=== PATIENT | male | born 1965 | race Caucasian/White ===

== ENCOUNTER 2017-07-19 07:27 | Inpatient (IN) | payer OTHER ==
[~2017-07-19] VITALS: Ht 185.4 cm; Wt 92.5 kg
[2017-07-19 07:30] VITALS: BP 182/94; PULSE 75; RESP 16; TEMP 98.4; O2SAT 99
[2017-07-19] MEDS ORDERED: VERA120T3 PO (07:48)
[2017-07-19] MEDS ORDERED: LIPI10TA PO (07:48)
[2017-07-19] MEDS ORDERED: VENL75TA PO (07:48)
[2017-07-19] MEDS ORDERED: DIAZ10 PO (07:48)
[2017-07-19] MEDS ORDERED: BENECAR (07:48)
[2017-07-19] MEDS ORDERED: GEOD60CA PO (07:48)
[2017-07-19] MEDS ORDERED: LORazepam 2 MG TAB PO ONE (08:15)
[2017-07-19 08:30] LABS: AUTOMATED NEUTROPHIL # 5.7 TH/MM3 (1.8-7.7); BASOPHIL # 0.1 TH/MM3 (0-0.2); BASOPHIL % 0.9 % (0.0-2.0); EOSINOPHIL # 0.1 TH/MM3 (0-0.4); EOSINOPHIL % 1.5 % (0.0-4.0); HEMATOCRIT 43.6 % (39.0-51.0); HEMOGLOBIN 14.9 GM/DL (13.0-17.0); LYMPH % 18.4 % (9.0-44.0); LYMPHOCYTE # 1.5 TH/MM3 (1.0-4.8); MEAN CELL VOLUME 87.2 FL (80.0-100.0); MEAN CORPUSCULAR HEMOGLOBIN 29.8 PG (27.0-34.0); MEAN CORPUSCULAR HGB CONC 34.2 % (32.0-36.0); MEAN PLATELET VOLUME 7.5 FL (7.0-11.0); MONO % 7.9 % (0.0-8.0); MONOCYTE # 0.6 TH/MM3 (0-0.9); NEUT % 71.3 % (16.0-70.0); PLATELET COUNT 344 TH/MM3 (150-450); RED CELL DISTRIBUTION WIDTH 13.8 % (11.6-17.2)
[2017-07-19 08:41] LABS: ALBUMIN 3.7 GM/DL (3.4-5.0); ALT (GPT) 23 U/L (12-78); AST (GOT) 16 U/L (15-37); BICARBONATE 26.2 MEQ/L (21.0-32.0); BLOOD UREA NITROGEN 11 MG/DL (7-18); CALCIUM 8.5 MG/DL (8.5-10.1); CHLORIDE 106 MEQ/L (98-107); CREATININE 0.76 MG/DL (0.60-1.30); GLOMERULAR FILTRATION RATE 109 ML/MIN (>89); GLUCOSE,RANDOM 111 MG/DL (74-106); SODIUM (NA) 140 MEQ/L (136-145)
[2017-07-19 08:51] LABS: ALKALINE PHOSPHATASE 87 U/L (45-117); TOTAL BILIRUBIN ADULT 0.4 MG/DL (0.2-1.0); TOTAL PROTEIN 7.5 GM/DL (6.4-8.2)
--- NOTE | 2017-07-19 09:58 | PD ---
HPI Chief Complaint: Psychiatric Symptoms Time Seen by Provider: 07:48 Travel History International Travel<30 days: No Contact w/Intl Traveler<30days: No Traveled to known affect area: No History of Present Illness HPI 51-year-old male presents emergency department voluntarily for psychiatric symptoms. Patient states family history of bipolar disorder and depression. Patient currently takes Geodon and diazepam prescribed by his primary care physician. Patient states increased anxiety and difficulty functioning at his job. Patient denies suicidal or homicidal ideation at this time, but is requesting psychiatric evaluation as he feels he is becoming more out of control. Patient denies use of drugs or alcohol. Patient denies any other medical issues currently per he is allergic to codeine and iodine. PFSH Past Medical History Bipolar Disorder: Yes Depression: Yes High Cholesterol: Yes Hypertension: Yes Tetanus Vaccination: > 5 Years Influenza Vaccination: Yes Past Surgical History Abdominal Surgery: Yes (hernia) Social History Alcohol Use: No Tobacco Use: Yes (1.5 ppd) Substance Use: Yes (marijuana ) Allergies-Medications (Allergen,Severity, Reaction): Coded Allergies: codeine (Verified Allergy, Severe, Anaphylaxis, 07/19/17) iodine (Verified Allergy, Severe, Anaphylaxis, 07/19/17) Reported Meds & Prescriptions Reported Meds & Active Scripts Active Reported Effexor (Venlafaxine HCl) 75 Mg Tab 75 Mg PO BID Lipitor (Atorvastatin Calcium) 10 Mg Tab 10 Mg PO HS Valium (Diazepam) 10 Mg Tab 10 Mg PO HS [benecar] Verapamil (Verapamil HCl) 120 Mg Tab 120 Mg PO BID Geodon (Ziprasidone) 60 Mg Cap 60 Mg PO BID Review of Systems Except as stated in HPI: all other systems reviewed are Neg General / Constitutional: No: Fever Eyes: No: Visual changes HENT: No: Headaches Cardiovascular: No: Chest Pain or Discomfort Respiratory: No: Shortness of Breath Gastrointestinal: No: Abdominal Pain Genitourinary: No: Dysuria Musculoskeletal: No: Pain Skin: No Rash Neurologic: No: Weakness Psychiatric: Positive: Anxiety, Depression, No: Suicidal Ideations, Substance Abuse, Homicidal Ideation Endocrine: No: Polydipsia Hematologic/Lymphatic: No: Easy Bruising Physical Exam Narrative GENERAL: Patient appears somewhat anxious with pressured speech noted SKIN: Warm and dry. Normal color. Normal turgor. HEAD: Atraumatic. Normocephalic. EYES: Pupils equal and round. No scleral icterus. No injection or drainage. ENT: No nasal bleeding or discharge. Mucous membranes pink and moist. Pharynx is clear. Airways patent NECK: Trachea midline. Supple and nontender CARDIOVASCULAR: Regular rate and rhythm. RESPIRATORY: No accessory muscle use. Clear to auscultation. Breath sounds equal bilaterally. GASTROINTESTINAL: Abdomen soft, non-tender, nondistended. Hepatic and splenic margins not palpable. MUSCULOSKELETAL: Extremities without clubbing, cyanosis, or edema. No obvious deformities. NEUROLOGICAL: Awake and alert. No obvious cranial nerve deficits. Motor grossly within normal limits. Five out of 5 muscle strength in the arms and legs. Normal speech. PSYCHIATRIC: Appropriate mood and affect; insight and judgment normal. Data Data Last Documented VS Vital Signs Date Time Temp Pulse Resp B/P (MAP) Pulse Ox O2 Delivery O2 Flow Rate FiO2 07/19/17 07:30 98.4 75 16 182/94 (123) 99 Orders Orders Complete Blood Count With Diff (07/19/17 08:07) Comprehensive Metabolic Panel (07/19/17 08:07) Thyroid Stimulating Hormone (07/19/17 08:07) Psych Screen (07/19/17 08:07) Drug Screen, Random Urine (07/19/17 08:07) Alcohol (Ethanol) (07/19/17 08:07) Lorazepam (Ativan) (07/19/17 08:15) Labs Laboratory Tests Test 07/19/17 08:13 White Blood Count 8.0 TH/MM3 Red Blood Count 5.00 MIL/MM3 Hemoglobin 14.9 GM/DL Hematocrit 43.6 % Mean Corpuscular Volume 87.2 FL Mean Corpuscular Hemoglobin 29.8 PG Mean Corpuscular Hemoglobin Concent 34.2 % Red Cell Distribution Width 13.8 % Platelet Count 344 TH/MM3 Mean Platelet Volume 7.5 FL Neutrophils (%) (Auto) 71.3 % Lymphocytes (%) (Auto) 18.4 % Monocytes (%) (Auto) 7.9 % Eosinophils (%) (Auto) 1.5 % Basophils (%) (Auto) 0.9 % Neutrophils # (Auto) 5.7 TH/MM3 Lymphocytes # (Auto) 1.5 TH/MM3 Monocytes # (Auto) 0.6 TH/MM3 Eosinophils # (Auto) 0.1 TH/MM3 Basophils # (Auto) 0.1 TH/MM3 CBC Comment DIFF FINAL Differential Comment Blood Urea Nitrogen 11 MG/DL Creatinine 0.76 MG/DL Random Glucose 111 MG/DL Total Protein 7.5 GM/DL Albumin 3.7 GM/DL Calcium Level 8.5 MG/DL Alkaline Phosphatase 87 U/L Aspartate Amino Transf (AST/SGOT) 16 U/L Alanine Aminotransferase (ALT/SGPT) 23 U/L Total Bilirubin 0.4 MG/DL Sodium Level 140 MEQ/L Potassium Level 4.3 MEQ/L Chloride Level 106 MEQ/L Carbon Dioxide Level 26.2 MEQ/L Anion Gap 8 MEQ/L Estimat Glomerular Filtration Rate 109 ML/MIN Thyroid Stimulating Hormone 3rd Gen 1.310 uIU/ML Urine Opiates Screen NEG Urine Barbiturates Screen NEG Urine Amphetamines Screen NEG Urine Benzodiazepines Screen POS Urine Cocaine Screen NEG Urine Cannabinoids Screen POS Ethyl Alcohol Level LESS THAN 3 MG/DL MDM Medical Decision Making Medical Screen Exam Complete: Yes Emergency Medical Condition: Yes Differential Diagnosis Psychiatric symptoms. Anxiety. Mood disorder. Narrative Course Psychiatric labs ordered per protocol. Patient is medically cleared for psychiatric evaluation. Psych screen is ordered Condition: Stable [place] Archer Jul 19, 2017 09:58
[2017-07-19 18:51] VITALS: BP 172/102; PULSE 62; RESP 16; TEMP 98.4; O2SAT 96
--- NOTE | 2017-07-19 19:16 | PD ---
History of Present Illness Chief Complaint: Psychiatric Symptoms Time Seen by Provider: 17:45 Travel History International Travel<30 Days: No Contact w/Intl Traveler<30days: No Known affected area: No Legal Status Legal Status: Voluntary History of Present Illness: History of Present Illness 51-year-old, , male with self reported history of schizophrenia who presents emergency department voluntarily for psychiatric symptoms. He reports that for the past few weeks he has been experiencing decreased concentration and attention, increased confusion, feeling paranoid, "like people are talking about me", has been unable to go to work in the last couple of days due to his paranoid feelings, increased concern over tremors which are more pronounced in the morning, restless and interrupted sleep with only getting 3-4 hours per night, low energy. Patient has been under psychiatric care for the past 1-1/[address] Hutchison. When he saw Dr. Hutchison last month he reported his symptoms and his medications where adjusted with increase in Geodon to 60 mg twice a day. He reports medication compliance Patient feels that the increase in the medication has not helped him and is very concerned since he is now having more symptoms and has not been able to go to work for the last 2 days. He decided to come to the hospital because he was feeling" more out of control". Patient is seen. She is dressed in [facility] with appropriate hygiene and grooming. He is engaging and cooperative. His speech is clear, logical and coherent, of normal rate and tone. His affect is somewhat blunted. Fair amount of eye contact. Mood is anxious. He is extremely concerned over his symptomatology because his father was diagnosed with schizophrenia and the patient had to take care of him for the last 32 years of his life. He believes he may have some of the same symptoms as father had. He does not appear to be internally stimulated but reports that he has experienced" increase in chatter like when you walk into a cafeteria and hear a lot of people talking at the same time." He is unable to decipher what he is hearing. He denies suicidal or homicidal ideation, intent or plan. Patient is concerned over her current medications and would like to have his current treatment plan adjusted or changed at this time. PFSH Past Medical History Bipolar Disorder: Yes Depression: Yes High Cholesterol: Yes Hypertension: Yes Tetanus Vaccination: > 5 Years Influenza Vaccination: Yes Past Surgical History Abdominal Surgery: Yes (hernia) Psychiatric History Psychiatric History Hx Psychiatric Treatment: Has been under the care of Dr. Alex Hutchison for the past 1-1/2 years and states was diagnosed with schizophrenia. He has no previous hospitalizations. Current meds include Geodon 60 mg twice a day and Valium 10 mg every day, when necessary. History of Inpatient Treatment: No Guns or firearms in home: No Social History for 28 years. Lives with his . He has 2 children which are ages 25 and 22 years. 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 Hx Alcohol Use: No Hx Tobacco Use: Yes (1.5 ppd) Hx Substance Use: Yes Substance Use Type: Marijuana, Nicotine/Cigarettes Other Substances Used: 1 ppd Hx of Substance Use Treatment: No Family Psychiatric History Father with schizophrenia. Allergies-Medications (Allergen,Severity, Reaction): Coded Allergies: codeine (Verified Allergy, Severe, Anaphylaxis, 07/19/17) iodine (Verified Allergy, Severe, Anaphylaxis, 07/19/17) Reported Meds & Prescriptions Reported Meds & Active Scripts Active Reported Effexor (Venlafaxine HCl) 75 Mg Tab 75 Mg PO BID Lipitor (Atorvastatin Calcium) 10 Mg Tab 10 Mg PO HS Valium (Diazepam) 10 Mg Tab 10 Mg PO HS [benecar] Verapamil (Verapamil HCl) 120 Mg Tab 120 Mg PO BID Geodon (Ziprasidone) 60 Mg Cap 60 Mg PO BID Review of Systems Psychiatric: COMPLAINS OF: Anxiety, Confusion Except as stated in HPI: all other systems reviewed are Neg Mental Status Examination Appearance: Appropriate Consciousness: Alert Orientation: x4 Motor Activity: Normal gait Speech: Unremarkable Language: Adequate Fund of Knowledge: Adequate Attention and Concentration: Other (reports decreased concentration and attention) Memory: Unremarkable Mood: Anxious Affect: Blunt Thought Process & Associations: Intact, Logical, Goal directed Thought Content: Appropriate Hallucination Type: Auditory (incomprehensible chatter) Delusion Type: None Suicidal Ideation: No Suicidal Plan: No Suicidal Intention: No Homicidal Ideation: No Homicidal Plan: No Homicidal Intention: No Insight: Adequate Judgment: Adequate MDM Medical Decision Making Medical Record Reviewed: Yes Assessment/Plan 51-year-old, , male with self reported history of schizophrenia who presents emergency department voluntarily for psychiatric symptoms. He reports that for the past few weeks he has been experiencing decreased concentration and attention, increased confusion, feeling paranoid, "like people are talking about me", has been unable to go to work in the last couple of days due to his paranoid feelings, increased concern over tremors which are more pronounced in the morning, restless and interrupted sleep with only getting 3-4 hours per night, low energy. Patient has been under psychiatric care for the past 1-1/[address] Hutchison. When he saw Dr. Hutchison last month he reported his symptoms and his medications where adjusted with increase in Geodon to 60 mg twice a day. He reports medication compliance Patient feels that the increase in the medication has not helped him and is very concerned since he is now having more symptoms and has not been unable to function at work for the last 2 days. He decided to come to the hospital because he was feeling" more out of control". Patient at this time meets criteria for increase in level of care on inpatient psychiatric unit for further evaluation, stabilization, and medication adjustment. Orders Orders Complete Blood Count With Diff (07/19/17 08:07) Comprehensive Metabolic Panel (07/19/17 08:07) Thyroid Stimulating Hormone (07/19/17 08:07) Psych Screen (07/19/17 08:07) Drug Screen, Random Urine (07/19/17 08:07) Alcohol (Ethanol) (07/19/17 08:07) Lorazepam (Ativan) (07/19/17 08:15) Diet Regular Basic (07/19/17 Dinner) Results Vital Signs Date Time Temp Pulse Resp B/P (MAP) Pulse Ox O2 Delivery O2 Flow Rate FiO2 07/19/17 07:30 98.4 75 16 182/94 (123) 99 Laboratory Tests Test 07/19/17 08:13 White Blood Count 8.0 Red Blood Count 5.00 Hemoglobin 14.9 Hematocrit 43.6 Mean Corpuscular Volume 87.2 Mean Corpuscular Hemoglobin 29.8 Mean Corpuscular Hemoglobin Concent 34.2 Red Cell Distribution Width 13.8 Platelet Count 344 Mean Platelet Volume 7.5 Neutrophils (%) (Auto) 71.3 Lymphocytes (%) (Auto) 18.4 Monocytes (%) (Auto) 7.9 Eosinophils (%) (Auto) 1.5 Basophils (%) (Auto) 0.9 Neutrophils # (Auto) 5.7 Lymphocytes # (Auto) 1.5 Monocytes # (Auto) 0.6 Eosinophils # (Auto) 0.1 Basophils # (Auto) 0.1 CBC Comment DIFF FINAL Differential Comment Blood Urea Nitrogen 11 Creatinine 0.76 Random Glucose 111 Total Protein 7.5 Albumin 3.7 Calcium Level 8.5 Alkaline Phosphatase 87 Aspartate Amino Transf (AST/SGOT) 16 Alanine Aminotransferase (ALT/SGPT) 23 Total Bilirubin 0.4 Sodium Level 140 Potassium Level 4.3 Chloride Level 106 Carbon Dioxide Level 26.2 Anion Gap 8 Estimat Glomerular Filtration Rate 109 Thyroid Stimulating Hormone 3rd Gen 1.310 Urine Opiates Screen NEG Urine Barbiturates Screen NEG Urine Amphetamines Screen NEG Urine Benzodiazepines Screen POS Urine Cocaine Screen NEG Urine Cannabinoids Screen POS Ethyl Alcohol Level LESS THAN 3 Diagnosis Primary Impression: Unspecified psychosis Additional Impression: Cannabis abuse Admitting Information Admitting Physician Requests: Admit Condition: Stable Problem Qualifiers Re Peguero [facility] Jul 19, 2017 19:16
[2017-07-19] MEDS ORDERED: MAGNESIUM HYDROXIDE SUSP 30 ML CUP PO PRN (19:30)
[2017-07-19] MEDS ORDERED: ALUMINUM/MAGNESIUM/SIMETH 30 ML CUP PO PRN (19:30)
[2017-07-19 20:50] VITALS: BP 172/99; PULSE 60; RESP 18; TEMP 98.5; O2SAT 96
[2017-07-20] MEDS: ACETAMINOPHEN 325 MG TAB PO PRN ×2 (05:50→14:22)
[2017-07-20 06:04] VITALS: BP 148/88; PULSE 61; RESP 16; TEMP 97.8; O2SAT 96
[2017-07-20 10:54] LABS: BICARBONATE 26.8 MEQ/L (21.0-32.0); BLOOD UREA NITROGEN 11 MG/DL (7-18); CALCIUM 8.7 MG/DL (8.5-10.1); CHLORIDE 103 MEQ/L (98-107); CREATININE 0.67 MG/DL (0.60-1.30); GLOMERULAR FILTRATION RATE 126 ML/MIN (>89); GLUCOSE,RANDOM 94 MG/DL (74-106); SODIUM (NA) 137 MEQ/L (136-145)
[2017-07-20 10:55] LABS: CHOLESTEROL 186 MG/DL (120-200)
[2017-07-20 11:00] LABS: CHOLESTEROL/ HDL RATIO 3.75 RATIO; HDL CHOLESTEROL 49.5 MG/DL (40.0-60.0); LDL CHOLESTEROL 118 MG/DL (0-99); TRIGLYCERIDES 95 MG/DL (42-150)
[2017-07-20] MEDS ORDERED: hydrOXYzine HCL 50 MG TAB PO PRN (15:15)
--- NOTE | 2017-07-20 15:19 | HHI.HP ---
Provisional Diagnosis Admission Date Jul 19, 2017 at 19:20 [place] I. Major depression single episode severe without psychosis Certification of Person's Competence To Provide Express and Informed Consent I have personally examined Johnny Cox , a person being served at [facility] on, Jul 20, 2017 15:08. Express and informed consent means consent voluntarily given in writing, by a competent person, after sufficient explanation and disclosure of the subject matter involved to enable the person to make a knowing and willful decision without any element of force, fraud, deceit, duress, or other form of constraint or coercion. This person is 18 years of age or older, is not now known to be incompetent to consent to treatment with a guardian advocate, and does not have a health care surrogate or proxy currently making medical treatment decisions. I have found this person to be one of the following: xxxxx[] Competent to provide express and informed consent, as defined above, for voluntary admission to this facility and is competent to provide express and informed consent for treatment. He/she has the consistent capacity to make well reasoned, willful, and knowing decisions concerning his or her medical or mental health treatment. The person fully and consistently understands the purpose of the admission for examination/placement and is fully capable of personally exercising all rights assured [place] Incompetent to provide express and informed consent to voluntary admission, and this is incompetent to provide express and informed consent to treatment. The person must be transferred to involuntary status and a petition for a guardian advocate filed with the Circuit Court. [] Refusing to provide express and informed consent to voluntary admission but is competent to provide express and informed consent for treatment. The person must be discharged or transferred to involuntary status. Form shall be completed within 24 hours of a person's arrival at the receiving facility and filed in the clinical record of each person: 1. Admitted on a voluntary basis 2. Permitted to provide express and informed consent to his/her own treatment 3. Allowed to transfer from involuntary to voluntary status 4. Prior to permitting a person to consent to his or her own treatment after having been previously found incompetent to consent to treatment. History of Present Illness Capacity: Has Capacity Psych Chief Complaint: depression anxiety mild paranoia HPI Patient financial white male who comes here voluntarily with history of increased depression with mild paranoia and anxiety. Patient has had increasing depression with sad mood crying spells some perseveration about the of his father in February of last year, decreased concentration and attention increased irritability and decreased appetite. He denies voices or visions. He denies suicidality. He denies alcohol use. Though he states he does smoke marijuana fairly regularly. Patient states she is a patient with Dr. Alex suarez who prescribes him Effexor Geodon and Valium. The Geodon was increased from 50 twice a day to 60 twice a day recently due to the above issues. Of interest is the fact that the patient's father was a severe diagnosed schizophrenic. It appears his father was murdered very briefly in his early 20s he is the progeny of that brief union or rigors raised by his grandparents and his father lived in an [facility]DC last 20+ years of his life. Patient did take the caregiver role for his father when he was 20-21 years of age. Patient is having marked anxiety now is noticing some mild memory issues focusing issues that he is perseverating on feeling that the diagnosis given by Dr. suarez which he states his schizophrenia might be increasing and he is further identifying with his father. There also appears patient is not fully grieve for his father's he cried for a period of time when discussing it with us. Patient is has 2 adult children that are doing quite well. 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 He states he just wants to feel better. We discussed medications. We'll continue his regular prescribed medications though we add Zoloft 25 mg to this. Patient also stated that he is never been to counseling. We will attempt to secure counseling for him also. Thus patient will be admitted on a voluntary basis we'll initiate the Zoloft treatment through we'll monitor patient we can consider discharging on Sunday any appropriate referrals in place Review of Systems Constitutional: DENIES: Diaphoretic episodes, Fatigue, Fever, Weight gain, Weight loss, Chills, Dizziness, Change in appetite, Night Sweats Endocrine: DENIES: Heat/cold intolerance, Polydipsia, Polyuria, Polyphagia Eyes: DENIES: Blurred vision, Diplopia, Eye inflammation, Eye pain, Vision loss , Photosensitivity, Double Vision Ears, nose, mouth, throat: DENIES: Tinnitus, Hearing loss, Vertigo, Nasal discharge, Oral lesions, Throat pain, Hoarseness, Ear Pain, Running Nose, Epistaxis, Sinus Pain, Toothache, Odynophagia Respiratory: DENIES: Apneas, Cough, Snoring, Wheezing, Hemoptysis, Sputum production, Shortness of breath Cardiovascular: DENIES: Chest pain, Palpitations, Syncope, Dyspnea on Exertion , PND, Lower Extremity Edema, Orthopnea, Claudication Gastrointestinal: DENIES: Abdominal pain, Black stools, Bloody stools, Constipation, Diarrhea, Nausea, Vomiting, Difficulty Swallowing, Anorexia Genitourinary: DENIES: Sexual dysfunction, Urinary frequency, Urinary incontinence, Urgency, Hematuria, Dysuria, Nocturia, Penile Discharge, Testicular Pain, Testicular Swelling Musculoskeletal: DENIES: Joint pain, Muscle aches, Stiffness, Joint Swelling, Back pain, Neck pain Integumentary: DENIES: Abnormal pigmentation, Nail changes, Pruritus, Rash Hematologic/lymphatic: DENIES: Bruising, Lymphadenopathy Immunologic/allergic: DENIES: Eczema, Urticaria Neurologic: DENIES: Abnormal gait, Headache, Localized weakness, Paresthesias, Seizures, Speech Problems, Tremor, Poor Balance Psychiatric: COMPLAINS OF: Anxiety, Confusion, Depression Past Psych History Psychological trauma history Patient denies any physical or sexual abuse Violence risk - others (6 mos) Low Violence risk - self (6 mos) Low Substance Abuse History Drugs/Alcohol past 12 months Patient states a regular marijuana smoker Past Family Social History Coded Allergies: codeine (Verified Allergy, Severe, Anaphylaxis, 07/19/17) iodine (Verified Allergy, Severe, Anaphylaxis, 07/19/17) Reported Medications Venlafaxine (Effexor) 75 Mg Tab, 75 MG PO BID, #30 TAB 0 Refills 07/19/17 Atorvastatin (Lipitor) 10 Mg Tab, 10 MG PO HS for Cholesterol Management, #30 TAB 0 Refills 07/19/17 Diazepam (Valium) 10 Mg Tab, 10 MG PO HS, TAB 0 Refills 07/19/17 [benecar] No Conflict Check 07/19/17 Verapamil (Verapamil) 120 Mg Tab, 120 MG PO BID, #60 TAB 0 Refills 07/19/17 Ziprasidone (Geodon) 60 Mg Cap, 60 MG PO BID, #60 CAP 0 Refills 07/19/17 Current Medications Medications (Trade) Dose Ordered Sig/Shilpi Route Start Time Stop Time Status Last Admin (Tylenol) 650 mg Q4H PRN PO 07/19/17 19:30 07/20/17 14:22 (Milk Of Magnesia Liq) 30 ml DAILY PRN PO 07/19/17 19:30 (Mag-Al Plus Susp Liq) 30 ml Q6H PRN PO 07/19/17 19:30 (Atarax) 50 mg Q6H PRN PO 07/20/17 15:15 UNV (Lipitor) 10 mg HS PO 07/20/17 21:00 UNV (Valium) 10 mg HS PO 07/20/17 21:00 UNV (Isoptin) 120 mg BID PO 07/20/17 21:00 UNV (Geodon) 60 mg BID PO 07/20/17 21:00 UNV Non-Formulary Medication 75 mg BID PO 07/20/17 21:00 UNV Family Psych History Patient's father was a severe schizophrenic who patient cared for for the past 20+ years Social History Patient [place] 2 adult children is a full-time job Patient's Strengths (min. 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 Patient will offer extremities without difficulty. No abnormal motor movements noted Vital Signs Vital Signs Date Time Temp Pulse Resp B/P (MAP) Pulse Ox O2 Delivery O2 Flow Rate FiO2 07/20/17 07:00 16 07/20/17 06:04 97.8 61 148/88 (108) 96 07/19/17 18:51 Room Air Lab Results Test 07/20/17 09:45 Blood Urea Nitrogen 11 MG/DL Creatinine 0.67 MG/DL Random Glucose 94 MG/DL Calcium Level 8.7 MG/DL Sodium Level 137 MEQ/L Potassium Level 4.3 MEQ/L Chloride Level 103 MEQ/L Carbon Dioxide Level 26.8 MEQ/L Anion Gap 7 MEQ/L Estimat Glomerular Filtration Rate 126 ML/MIN Triglycerides Level 95 MG/DL Cholesterol Level 186 MG/DL LDL Cholesterol 118 MG/DL HDL Cholesterol 49.5 MG/DL Cholesterol/HDL Ratio 3.75 RATIO Mental Status Examination Appearance: Appropriate Consciousness: Alert Orientation: x4 Motor Activity: Normal gait Speech: Unremarkable Language: Adequate Fund of Knowledge: Adequate Attention and Concentration: Other (reports decreased concentration and attention) Memory: Unremarkable Mood: Sad, Anxious Affect: Other (decreased range and intensity) Thought Process & Associations: Intact, Logical, Goal directed Thought Content: Appropriate Hallucination Type: Auditory (incomprehensible chatter fading today) Delusion Type: None Suicidal Ideation: No Suicidal Plan: No Suicidal Intention: No Homicidal Ideation: No Homicidal Plan: No Homicidal Intention: No Insight: Adequate Judgment: Adequate Assessment & Plan Problem List: (1) Major depressive disorder, single episode, severe without psychosis ICD Codes: F32.2 - Major depressive disorder, single episode, severe without psychotic features Assessment & Plan Estimated LOS: 3-5 days patient meets criteria for involuntary psychiatric consultation for brief period of time to initiate antidepressant therapy to monitor patient's safety. Will add Zoloft to his regimen. We will work with him over the weekend Sunday with counselor's for them also find appropriate counseling services and have him return to Dr. Alex suarez for mental health medication and treatment Discharge Planning See above Request HC Surrog/Guard Advoc?: No Bhavesh Rod MD Jul 20, 2017 15:19
[2017-07-20] MEDS ORDERED: PILL SPLITTER OTHER PRN (16:00)
[2017-07-20] MEDS: SERTRALINE HCL 50 MG TAB PO SCH (16:27)
[2017-07-20 17:32] VITALS: BP 161/69; PULSE 67; RESP 18; TEMP 98.4
[2017-07-20 18:57] LABS: HEMOGLOBIN A1C 5.6 % (4.3-6.0)
[2017-07-20] MEDS: ZIPRASIDONE HCL 60 MG CAP PO SCH (21:23)
[2017-07-20] MEDS: ATORVASTATIN 10 MG TAB PO SCH (21:23)
[2017-07-20] MEDS: DIAZEPAM 10 MG TAB PO SCH (21:23)
[2017-07-20] MEDS: VERAPAMIL HCL 120 MG TAB PO SCH (21:23)
[2017-07-20] MEDS: VENLAFAXINE HCL XR 75 MG CAP PO SCH (21:23)
[2017-07-21 06:05] VITALS: BP 139/86; PULSE 61; RESP 16; TEMP 97.1; O2SAT 96
[2017-07-21] MEDS: ACETAMINOPHEN 325 MG TAB PO PRN (06:47)
[2017-07-21] MEDS: ZIPRASIDONE HCL 60 MG CAP PO SCH ×2 (08:52→20:30)
[2017-07-21] MEDS: VENLAFAXINE HCL XR 75 MG CAP PO SCH (08:52)
[2017-07-21] MEDS: VERAPAMIL HCL 120 MG TAB PO SCH ×2 (08:52→20:30)
[2017-07-21] MEDS: SERTRALINE HCL 50 MG TAB PO SCH (08:54)
--- NOTE | 2017-07-21 13:07 | PD.CONS ---
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 Patient having difficulty with concentration and attention, increased confusion and paranoia. Patient has been under psychiatric care for the past year and a half and recently had his medications adjusted with increase in Geodon to 60 mg twice a day. Patient admitted to inpatient psychiatric unit and hospitalist services consulted for medical management. Patient seen and examined. Patient states he feels well. In fact, he states he would like to sign himself out today. He denies any fever or chills. Denies any vision changes, lightheadedness or dizziness. Denies any chest pain or shortness of breath. Denies any nausea, vomiting or abdominal pain. Denies any urinary difficulties. Denies any diarrhea or constipation. Denies any blood in the urine or stool. Denies any auditory or visual hallucinations. Review of Systems Except as stated in HPI: all other systems reviewed are Neg Past Family Social History Allergies: Coded Allergies: codeine (Verified Allergy, Severe, Anaphylaxis, 07/19/17) iodine (Verified Allergy, Severe, Anaphylaxis, 07/19/17) Past Medical History Depression Bipolar disorder Hypertension Dyslipidemia Past Surgical History Hernia surgery Reported Medications Effexor (Venlafaxine HCl) 75 Mg Tab 75 Mg PO BID Lipitor (Atorvastatin Calcium) 10 Mg Tab 10 Mg PO HS Valium (Diazepam) 10 Mg Tab 10 Mg PO HS [benecar] Verapamil (Verapamil HCl) 120 Mg Tab 120 Mg PO BID Geodon (Ziprasidone) 60 Mg Cap 60 Mg PO BID Active Ordered Medications Current Medications Medications (Trade) Dose Ordered Sig/Shilpi Route Start Time Stop Time Status Last Admin (Tylenol) 650 mg Q4H PRN PO 07/19/17 19:30 07/21/17 06:47 (Milk Of Magnesia Liq) 30 ml DAILY PRN PO 07/19/17 19:30 (Mag-Al Plus Susp Liq) 30 ml Q6H PRN PO 07/19/17 19:30 (Atarax) 50 mg Q6H PRN PO 07/20/17 15:15 (Lipitor) 10 mg HS PO 07/20/17 21:00 07/20/17 21:23 (Valium) 10 mg HS PO 07/20/17 21:00 07/20/17 21:23 (Isoptin) 120 mg BID PO 07/20/17 21:00 07/21/17 08:52 (Geodon) 60 mg BID PO 07/20/17 21:00 07/21/17 08:52 (Effexor Xr) 150 mg DAILY PO 07/20/17 21:00 07/21/17 08:52 (Zoloft) 25 mg DAILY PO 07/20/17 15:15 07/21/17 08:54 (Pill Splitter) 1 ea UNSCH PRN OTHER 07/20/17 16:00 Family History Father, schizophrenia Mother, unknown Social History Patient reports tobacco use of one and a half pack per day for 30+ years. He denies any alcohol consumption. He reports marijuana use but denies any other illicit drug use history. Physical Exam Vital Signs Vital Signs Date Time Temp Pulse Resp B/P (MAP) Pulse Ox O2 Delivery O2 Flow Rate FiO2 07/21/17 07:47 16 07/21/17 06:05 97.1 61 16 139/86 (103) 96 07/20/17 17:32 98.4 67 18 161/69 (99) Physical Exam GENERAL: This is a well-nourished, well-developed male patient, in no apparent distress. Pleasant and calm. Awake and alert. SKIN: No rashes, ecchymoses or lesions. Cool and dry. HEAD: Atraumatic. Normocephalic. No temporal or scalp tenderness. EYES: Pupils equal round and reactive. Extraocular motions intact. No scleral icterus. No injection or drainage. ENT: Nose without bleeding or purulent drainage. Throat without erythema, tonsillar hypertrophy or exudate. Uvula midline. Airway patent. NECK: Trachea midline. No lymphadenopathy. Supple, nontender, no meningeal signs. CARDIOVASCULAR: Regular rate and rhythm without murmurs, gallops, or rubs. RESPIRATORY: Clear to auscultation. Breath sounds equal bilaterally. No wheezes , rales, or rhonchi. GASTROINTESTINAL: Abdomen soft, non-tender, nondistended. No hepato-splenomegaly , or palpable masses. No guarding. MUSCULOSKELETAL: Extremities without clubbing, cyanosis, or edema. No joint tenderness, effusion, or edema noted. No calf tenderness. NEUROLOGICAL: Awake and alert. Cranial nerves II through XII grossly intact. Motor and sensory grossly within normal limits. No focal neurologic findings appreciated. Normal speech. 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 Patient admitted to inpatient psychiatric unit and hospitalist services consulted for medical management. Bipolar disorder Depression -Management per psychiatric team -UDS positive for benzodiazepines and cannabis. -Discussed cessation of marijuana use - suspect contributing to paranoia. Hypertension -Hypertensive at admission, now controlled -Continue patient on home dose of verapamil 120mg twice a day -Continue to monitor BP and adjust treatment accordingly Dyslipidemia -Continue patient on home dose of Lipitor 10 mg daily Ongoing tobaccoism -Discussed smoking cessation -Nicotine patch offered and accepted DVT prophylaxis -Patient is ambulatory Thank you very kindly for this consultation. Patient appears stable from a hospitalist standpoint. Will sign off for now. Please reconsult if needed. Discussed Condition With Patient, nursing staff Lindsey Cheng Jul 21, 2017 13:07
--- NOTE | 2017-07-21 13:25 | HHI.PYPN ---
Subjective Chief Complaint: depression anxiety mild paranoia Remarks Pt seen and discussed with staff. Pt has been compliant with medications and denies side effects. He remains dysphoric and has been lying in bed most of the day. No delusions or hallucinations. No SI/HI Mental Status Examination Appearance: Appropriate Consciousness: Alert Orientation: x4 Motor Activity: Normal gait Speech: Unremarkable Language: Adequate Fund of Knowledge: Adequate Attention and Concentration: Other (reports decreased concentration and attention) Memory: Unremarkable Mood: Sad, Other (depressed) Affect: Flat, Other Thought Process & Associations: Linear Thought Content: Appropriate Hallucination Type: None Delusion Type: None Suicidal Ideation: No Suicidal Plan: No Suicidal Intention: No Homicidal Ideation: No Homicidal Plan: No Homicidal Intention: No Insight: Adequate Judgment: Adequate Results Vitals/IOs Vital Signs Date Time Temp Pulse Resp B/P (MAP) Pulse Ox O2 Delivery O2 Flow Rate FiO2 07/21/17 07:47 16 07/21/17 06:05 97.1 61 139/86 (103) 96 07/19/17 18:51 Room Air Assessment & Plan Problem List: (1) Major depressive disorder, single episode, severe without psychosis ICD Codes: F32.2 - Major depressive disorder, single episode, severe without psychotic features Assessment & Plan Pt improving. Continue current tx plan. Estimated LOS: days Justification for Cont. Inpt. risk of decompensation Request HC Surrog/Guard Advoc?: Alberta Warren MD Jul 21, 2017 13:25
[2017-07-21] MEDS: NICOTINE 21 MG/24 HR PATCH T-DERMAL SCH (15:34)
[2017-07-21 18:07] VITALS: BP 133/71; PULSE 85; RESP 18; TEMP 98.1; O2SAT 98
--- NOTE | 2017-07-21 19:11 | EKG ---
Date Performed: 07/20/2017 Time Performed: 12:30:35 PTAGE: 51 years EKG: SINUS BRADYCARDIA BORDERLINE ECG NO PREVIOUS TRACING DOCTOR: Ynes Grajeda Interpretating Date/Time 07/21/2017 19:08:32
[2017-07-21] MEDS: DIAZEPAM 10 MG TAB PO SCH (20:30)
[2017-07-21] MEDS: ATORVASTATIN 10 MG TAB PO SCH (20:30)
[2017-07-22 05:05] VITALS: BP 130/83; PULSE 56; RESP 16; TEMP 97.9; O2SAT 97
[2017-07-22] MEDS: VENLAFAXINE HCL XR 75 MG CAP PO SCH (08:19)
[2017-07-22] MEDS: ZIPRASIDONE HCL 60 MG CAP PO SCH ×2 (08:19→20:42)
[2017-07-22] MEDS: VERAPAMIL HCL 120 MG TAB PO SCH ×2 (08:19→20:41)
[2017-07-22] MEDS: SERTRALINE HCL 50 MG TAB PO SCH (08:21)
[2017-07-22] MEDS: REMOVE OLD PATCH T-DERMAL SCH (08:25)
[2017-07-22] MEDS: NICOTINE 21 MG/24 HR PATCH T-DERMAL SCH (09:00)
--- NOTE | 2017-07-22 14:17 | HHI.PYPN ---
Subjective Chief Complaint: depression anxiety mild paranoia Remarks Pt seen and discussed. He reports that he is feeling less depressed today and mood is improving. He denies medication side effects. He did hygiene ADLs today and has been out of room in milieu today. He denies AVH or paranoia. No SI/HI Mental Status Examination Appearance: Appropriate Consciousness: Alert Orientation: x4 Motor Activity: Normal gait Speech: Unremarkable Language: Adequate Fund of Knowledge: Adequate Attention and Concentration: Other (reports decreased concentration and attention) Memory: Unremarkable Mood: Other (depressed) Affect: Other (improved range of affect) Thought Process & Associations: Linear Thought Content: Appropriate Hallucination Type: None Delusion Type: None Suicidal Ideation: No Suicidal Plan: No Suicidal Intention: No Homicidal Ideation: No Homicidal Plan: No Homicidal Intention: No Insight: Adequate Judgment: Adequate Results Vitals/IOs Vital Signs Date Time Temp Pulse Resp B/P (MAP) Pulse Ox O2 Delivery O2 Flow Rate FiO2 07/22/17 05:05 97.9 56 16 130/83 (99) 97 07/19/17 18:51 Room Air Assessment & Plan Problem List: (1) Major depressive disorder, single episode, severe without psychosis ICD Codes: F32.2 - Major depressive disorder, single episode, severe without psychotic features Assessment & Plan PT improving. Continue current tx plan. Estimated LOS: days Justification for Cont. Inpt. risk of decompensation Request HC Surrog/Guard Advoc?: Alberta Warren MD Jul 22, 2017 14:17
[2017-07-22 17:40] VITALS: BP 157/108; PULSE 81; RESP 17; TEMP 99; O2SAT 97
[2017-07-22 17:43] VITALS: BP 129/80; PULSE 56; RESP 18; TEMP 98.1; O2SAT 98
[2017-07-22] MEDS: DIAZEPAM 10 MG TAB PO SCH (20:42)
[2017-07-22] MEDS: ATORVASTATIN 10 MG TAB PO SCH (20:42)
[2017-07-23 05:49] VITALS: BP 109/78; PULSE 56; RESP 16; TEMP 98; O2SAT 98
[2017-07-23] MEDS: ZIPRASIDONE HCL 60 MG CAP PO SCH (08:46)
[2017-07-23] MEDS: SERTRALINE HCL 50 MG TAB PO SCH (08:46)
[2017-07-23] MEDS: REMOVE OLD PATCH T-DERMAL SCH (08:46)
[2017-07-23] MEDS: VENLAFAXINE HCL XR 75 MG CAP PO SCH (08:46)
[2017-07-23] MEDS: NICOTINE 21 MG/24 HR PATCH T-DERMAL SCH (08:46)
[2017-07-23] MEDS: VERAPAMIL HCL 120 MG TAB PO SCH (08:46)
[2017-07-23 10:12] VITALS: BP 115/70; PULSE 65; RESP 16; TEMP 98.1; O2SAT 95
[2017-07-23] MEDS ORDERED: DIAZ10 PO (14:14)
[2017-07-23] MEDS ORDERED: VERA120T3 PO (14:14)
[2017-07-23] MEDS ORDERED: VENL150C39 PO (14:14)
[2017-07-23] MEDS ORDERED: GEOD60CA PO (14:14)
[2017-07-23] MEDS ORDERED: LIPI10TA PO (14:14)
[2017-07-23] MEDS ORDERED: ZOLO25TA PO (14:14)
--- NOTE | 2017-07-23 14:18 | HHI.DS ---
Psychiatry Discharge Summary Inpatient Psychiatric care?: Yes Advance Directive: No Reason Not Provided: Due to Patient Condition Mental Health AdvanceDirective: No Health Care Proxy: No Admission Admission Date Jul 19, 2017 at 19:20 Admission Diagnosis: (1) Major depressive disorder, single episode, severe without psychosis ICD Code: F32.2 - Major depressive disorder, single episode, severe without psychotic features Brief History Patient financial white male who comes here voluntarily with history of increased depression with mild paranoia and anxiety. Patient has had increasing depression with sad mood crying spells some perseveration about the of his father in February of last year, decreased concentration and attention increased irritability and decreased appetite. He denies voices or visions. He denies suicidality. He denies alcohol use. Though he states he does smoke marijuana fairly regularly. Patient states she is a patient with Dr. Alex suarez who prescribes him Effexor Geodon and Valium. The Geodon was increased from 50 twice a day to 60 twice a day recently due to the above issues. Of interest is the fact that the patient's father was a severe diagnosed schizophrenic. It appears his father was murdered very briefly in his early 20s he is the progeny of that brief union or rigors raised by his grandparents and his father lived in an [place] last 20+ years of his life. Patient did take the caregiver role for his father when he was 20-21 years of age. Patient is having marked anxiety now is noticing some mild memory issues focusing issues that he is perseverating on feeling that the diagnosis given by Dr. suarez which he states his schizophrenia might be increasing and he is further identifying with his father. There also appears patient is not fully grieve for his father's he cried for a period of time when discussing it with us. Patient is has 2 adult children that are doing quite well. 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 He states he just wants to feel better. We discussed medications. We'll continue his regular prescribed medications though we add Zoloft 25 mg to this. Patient also stated that he is never been to counseling. We will attempt to secure counseling for him also. Thus patient will be admitted on a voluntary basis we'll initiate the Zoloft treatment through we'll monitor patient we can consider discharging on Sunday any appropriate referrals in place Tobacco Use In Past 30 Days: 5 or More Cigarettes/Day Alcohol Use: Monthly or Less Hospital Course Patient's hospital course was uneventful, he show compliance with medication from day of admission. He had a good weekend. States he has had good conversations with his family he feels like things are getting much better he does have some positive hopes for the future. He denies suicidality homicidality voices or visions. At this time patient recently maximum benefit of this hospitalization patient to be discharged today to himself follow-up [facility] [place] her private psychiatrist. With Rx times a month including Valium 10 mg #30 one at at bedtime Results Blood Pressure 115 / 70 Vital Signs Date Time Temp Pulse Resp B/P (MAP) Pulse Ox O2 Delivery O2 Flow Rate FiO2 07/23/17 10:12 98.1 65 16 115/70 (85) 95 07/19/17 18:51 Room Air Laboratory Results Test 07/20/17 09:45 Cholesterol Level 186 MG/DL (120-200) HDL Cholesterol 49.5 MG/DL (40.0-60.0) Hemoglobin A1c 5.6 % (4.3-6.0) LDL Cholesterol 118 MG/DL (0-99) Triglycerides Level 95 MG/DL (42-150) Summary of Procedures None done Pending results at discharge: No Medications # of Antipsychotic meds at D/C: 1 Approp Antipsych med options 1 - Minimum of three failed multiple trials of monotherapy. 2 - Documented plan to taper to monotherapy due to previous use of multiple meds OR cross-taper in progress at D/C. 3 - Documentation of augmentation of Clozapine. 4 - Justification other than those listed in allowable values 1-3, document here : Discharge Discharge Date: Jul 23, 2017 Discharge Diagnosis: (1) Major depressive disorder, single episode, severe without psychosis Diagnosis: Principal ICD Code: F32.2 - Major depressive disorder, single episode, severe without psychotic features Pt Condition on Discharge: Stable Discharge Disposition: Discharge Home Discharge Instructions Diet Instructions: As Tolerated, No Restrictions Activities you can perform: Regular-No Restrictions Scheduled Appointment: [facility] Discharge Time > 30 minutes Mental Status Examination Appearance: Appropriate Consciousness: Alert Orientation: x4 Motor Activity: Normal gait Speech: Unremarkable Language: Adequate Fund of Knowledge: Adequate Attention and Concentration: Other (reports decreased concentration and attention) Memory: Unremarkable Mood: Other (depressed) Affect: Other (improved range of affect) Thought Process & Associations: Linear Thought Content: Appropriate Hallucination Type: None Delusion Type: None Suicidal Ideation: No Suicidal Plan: No Suicidal Intention: No Homicidal Ideation: No Homicidal Plan: No Homicidal Intention: No Insight: Adequate Judgment: Adequate Discharge/Advance Care Plan Health Problems: (1) Major depressive disorder, single episode, severe without psychosis Goals to promote your health * To prevent worsening of your condition and complications * To maintain your health at the optimal level Directions to meet your goals Take your medications as prescribed Follow your dietary instruction Follow activity as directed Keep your appointments as scheduled Take your immunizations and boosters as scheduled If your symptoms worsen call your PCP, if no PCP go to Urgent Care Center or Emergency Room For 20/11 questions related to your inpatient stay or results of tests pending at discharge, please contact Dr. Bhavesh Rod at Smoking is Dangerous to Your Health. Avoid second hand smoking Bhavesh Rod MD Jul 23, 2017 14:18
== END 2017-07-23 16:15 | disposition home or self-care (01) | DRG 885 ==
LOC: NEPD 07:27 → NEDA 19:20 → H260 20:05
PROVIDERS: ADMIT Psychiatry & Neurology Psychiatry; ATTEND Psychiatry & Neurology Psychiatry
DX: F32.2 Major depressive disorder, single episode, severe without psychotic features (principal); I10 Essential (primary) hypertension; F12.10 Cannabis abuse, uncomplicated; Z81.8 Family history of other mental and behavioral disorders; E78.5 Hyperlipidemia, unspecified; F17.200 Nicotine dependence, unspecified, uncomplicated
CPT/HCPCS: 80048; 80053; 80061; 80307; 83036; 84443; 85025; 93005; 99285